=== PATIENT | male | born 1960 | race Caucasian/White ===

== ENCOUNTER 2021-02-20 15:34 | Inpatient (IN) | payer OTHER ==
[~2021-02-20] VITALS: Ht 182.9 cm; Wt 81.0 kg
[2021-02-20] MEDS ORDERED: LOSA50TA88 PO (15:43)
[2021-02-20] MEDS ORDERED: HYDR100T PO (15:43)
[2021-02-20] MEDS ORDERED: AMLO10TA PO (15:43)
[2021-02-20] MEDS ORDERED: CARV3.12 PO (15:43)
[2021-02-20] MEDS ORDERED: ACET325C5 PO (15:44)
[2021-02-20] MEDS ORDERED: FUROSEMIDE 20MG/2ML VIAL (J1940) IV ONE (16:15)
[2021-02-20 16:45] LABS: BASO % 0.4 % (0.0-1.0); EOS # 0.1 10^3/uL (0.0-0.5); EOS % 2.5 % (0.0-3.0); HEMOGLOBIN 9.5 g/dl (13.5-17.5); LYMPH # 0.4 10^3/uL (1.5-5.0); LYMPH % 8.4 % (24.0-44.0); MEAN CORPUSCULAR HEMOGLOBIN 29.9 pg (27.0-33.0); MEAN CORPUSCULAR HGB CONC 32.8 g/dl (32.0-36.5); MEAN CORPUSCULAR VOLUME 91.2 fl (80.0-96.0); MONO # 0.5 10^3/uL (0.0-0.8); MONO % 9.6 % (2.0-8.0); NEUTROPHILS # 3.8 10^3/uL (1.5-8.5); NEUTROPHILS % 78.7 % (36.0-66.0); PLATELET COUNT, AUTOMATED 162 10^3/uL (150-450); RED BLOOD COUNT 3.18 10^6/uL (4.30-6.10); WHITE BLOOD COUNT 4.9 10^3/uL (4.0-10.0)
--- NOTE | 2021-02-20 16:54 | REP ---
INDICATION: RLE swelling; recent travel; r/o DVT. COMPARISON: None. TECHNIQUE: Bilateral lower extremity duplex venous scanning is performed from the groin to the ankle level. FINDINGS: The deep veins are anechoic and fully compressible from the groin to the popliteal fossa in the left and right lower extremity. Color flow imaging is homogeneous. Spectral Doppler interrogation demonstrates intact respiratory variation in flow and normal manual augmentation of flow. There is no evidence of deep vein thrombosis in the femoropopliteal veins. There is no evidence of deep vein thrombosis in the visualized calf veins. IMPRESSION: No evidence of DVT in the femoropopliteal veins. No DVT in the visible portions of the calf veins. <Electronically signed by Delvis Smith > 02/20/21 [id number]
--- NOTE | 2021-02-20 16:56 | REP ---
INDICATION: DYSPNEA/COUGH. COMPARISON: No comparison chest x-ray. TECHNIQUE: Portable upright AP chest radiograph. FINDINGS: The lungs are well inflated and free of infiltrate. Pleural angles are sharp. Heart size is normal. Pulmonary vasculature is not increased. EKG monitoring electrodes are seen. IMPRESSION: No active disease. <Electronically signed by Delvis Smith > 02/20/21 [id number]
[2021-02-20 17:20] LABS: ALBUMIN 3.3 GM/DL (3.2-5.2); ALT/SGPT 13 U/L (12-78); BILIRUBIN,DIRECT 0.2 MG/DL (0.0-0.2); BILIRUBIN,TOTAL 0.6 MG/DL (0.2-1.0); BLOOD UREA NITROGEN 60 MG/DL (7-18); CALCIUM LEVEL 8.4 MG/DL (8.5-10.1); CARBON DIOXIDE LEVEL 20 MEQ/L (21-32); CHLORIDE LEVEL 104 MEQ/L (98-107); CK-MB VALUE MASS 1.6 NG/ML (<3.6); CPK CREATINE PHOSPHOKINASE 48 U/L (39-308); CREATININE FOR GFR 5.43 MG/DL (0.70-1.30); GLOMERULAR FILTRATION RATE 11.6 (>56); GLUCOSE, FASTING 101 MG/DL (70-100); MB/CK RELATIVE INDEX 3.33 (< OR =4); NT-PRO BNP 814 PG/ML (<125); POTASSIUM SERUM 4.5 MEQ/L (3.5-5.1); SODIUM LEVEL 133 MEQ/L (136-145); THYROXINE (T4) 9.2 UG/DL (4.5-12.0); TOTAL PROTEIN 6.5 GM/DL (6.4-8.2); TROPONIN I < 0.02 NG/ML (< 0.10)
[2021-02-20] MEDS ORDERED: NS 1,000 ML IV ONE (18:30)
[2021-02-20 19:55] LABS: APPEARANCE, URINE CLEAR (CLEAR); BACTERIA, URINE AUTO NEGATIVE (NEGATIVE); BILIRUBIN, URINE AUTO NEGATIVE (NEGATIVE); BLOOD, URINE BLOOD 3+ (NEGATIVE); COLOR, URINE YELLOW (YELLOW); GLUCOSE, URINE (UA) AUTO NEGATIVE (NEGATIVE); KETONE, URINE AUTO NEGATIVE (NEGATIVE); LEUKOCYTE ESTERASE, URINE AUTO NEGATIVE (NEGATIVE); MUCUS, URINE SMALL (NEGATIVE); NITRITE, URINE AUTO NEGATIVE (NEGATIVE); PROTEIN, URINE AUTO 2+ mg/dL (NEGATIVE); RBC, URINE AUTO TNTC /HPF (0-3); SPECIFIC GRAVITY URINE AUTO 1.005 (1.002-1.035); SQUAMOUS EPITHELIAL CELL UR AU 0 /HPF (0-6); UROBILINOGEN, URINE AUTO 0.2 mg/dL (0.0-2.0); WBC, URINE AUTO 3 /HPF (0-3)
[2021-02-20 19:57] LABS: CREATININE,RANDOM URINE 23.8 MG/DL
[2021-02-20 20:20] LABS: RSV AMPLIFICATION NEGATIVE (NEGATIVE)
[2021-02-20] MEDS ORDERED: ACET500T15 PO (20:24)
--- NOTE | 2021-02-20 20:49 | REPVR ---
PROCEDURE INFORMATION: Exam: US Retroperitoneal Limited, Kidneys Exam date and time: 02/20/2021 7:58 PM Age: 60 years old Clinical indication: Other: Dl TECHNIQUE: Imaging protocol: Real-time ultrasound of the retroperitoneum with image documentation. Examination was focused on the kidneys. Total images: 44 COMPARISON: No relevant prior studies available. FINDINGS: Right kidney: The right kidney is enlarged by multiple cysts. It is 17.4 x 7.8 x 8.9 cm. Echotexture is echogenic. There is no stone, solid right renal mass, cortical loss or hydronephrosis. There are multiple cysts. The 3 largest are:; An anechoic simple-appearing cyst at the upper pole the right kidney is 4.8 x 4.3 x 2.0 cm. A cyst containing a nonshadowing echogenic focus at the lateral mid right kidney is 4.7 x 5.0 x 4.6 cm. The echogenic focus is 1.6 x 1.2 x 0.9 cm (image 11). It is not vascular on color Doppler. And anechoic simple-appearing cyst at the medial lower right kidney is 5.6 x 4.2 x 3.9 cm. Left kidney: The left kidney is enlarged by multiple cysts. It is 13.0 x 6.6 x 7.3 cm. Echotexture is echogenic. There is no stone, solid left renal mass, cortical loss or hydronephrosis. There are multiple cysts. The 3 largest are:; A cyst containing nonshadowing echogenic material at the lateral lower left kidney is 4.5 x 3.9 x 3.7 cm. The echogenic material is 3.1 x 1.4 cm. It is not vascular on color Doppler. A simple appearing cyst in the lateral lower pole left kidney is 3.9 x 3.7 x 2.9 cm. A simple appearing cyst at the medial lower pole left kidney is 5.4 x 4.5 x 4.3 cm. Bladder: The bladder is distended. The bladder is normal without wall thickening, mass or stone. Limited images. Ureteral jets are not demonstrated. Prostate: The prostate is 4.6 x 4.2 x 4.4 cm. It contains multiple irregular central calcifications IMPRESSION: 1. Bilateral renal enlargement due to numerous cysts. No hydronephrosis or kidney stones. 2. Numerous bilateral renal cysts. Most of the cysts are simple-appearing can anechoic. There is a 5.0 cm complex cyst containing echogenic material in the right kidney. It is indeterminate. There is a 4.5 cm complex cyst containing echogenic material in the left kidney. It is indeterminate. A CT of the abdomen and pelvis using renal protocol is recommended in order to characterize these complex cysts. Electronically signed by: Eliceo Flower On 02/20/2021 20:49:25 PM
--- NOTE | 2021-02-20 20:54 | ECGEPIP ---
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
[2021-02-20] MEDS ORDERED: CARVedilol 3.125 MG TAB PO SCH (21:00)
[2021-02-20] MEDS ORDERED: MAALOX 30 ML SUSP *UDC PO PRN (21:20)
[2021-02-20] MEDS ORDERED: MOM 30ML SUSPENSION UDC PO PRN (21:20)
--- NOTE | 2021-02-20 21:46 | HPEPDOC ---
[facility] Medical History & Physical Date of Admission Feb 20, 2021 Date of Service: Feb 20, 2021 Attending Physician: MARY IBARRA MD History and Physical TIME OF SERVICE: 845pm CHIEF COMPLAINT: leg swelling HISTORY OF PRESENT ILLNESS: , a 60 yr old gentleman from [place], is in the area for a family reunion this weekend. He has had BLE swelling for a few weeks. Over the last 2 or 3 days it has been much worse despite using compression stalkings; today he came to the hospital because he is having difficulties walking. He has also been having chills and sweating especially at night, a poor appetite and has lost weight. He has a history of polycystic kidney disease, and sees a porter baggage whos name he cant currently recall, in [place]. Silvano oFreman was able to obtain hospital records from a recent hospital stay in October, at the time his Cr was about 0.9. REVIEW OF SYSTEMS: 10-point review of systems negative except as listed in HPI PAST MEDICAL/ SURGICAL HISTORY: Resistant? HTN, Polycystic kidney disease, Lap [place] SOCIAL HISTORY: He smokes, drinks alcohol socially and uses medical THC FAMILY HISTORY: Both his parents who are had CAD and had stents placed / His father had prostate cancer / His sister and cousins have polycystic kidney disease as well (his parents were not affected) ALLERGIES: Please see below. HOME MEDICATIONS: Please see below. PHYSICAL EXAMINATION: Vital Signs Date Time Temp Pulse Resp B/P (MAP) Pulse Ox O2 Delivery O2 Flow Rate FiO2 02/20/21 15:35 97.5 77 20 153/89 (110) 96 Room Air GENERAL APPEARANCE: well nourished and developed / NAD INTEGUMENT: he is not flushed or diaphoretic/ there are linear red rashes on the anterior part of both lower legs HEENT: EOMI /no scleral icterus or conjunctival injection / MM pink but slightly dry CARDIOVASCULAR: RRR/NMRG / +2 BLE edema LUNGS: CTAB on RA ABDOMEN: contour flat / soft & NT w palpation MUSCULOSKELETAL: NCAT / ROMIx 4 extremities and back NEUROLOGICAL: CN 2-12 intact / speech not dysarthric / he has bilateral hand tremors and chills when he is uncovered and holding his hands up PSYCHIATRIC: A&O x3 / able to understand and follow all commands LABORATORY DATA: 02/20/21 15:58 IMAGING: Chest xray IMPRESSION: No active disease. Vascular US IMPRESSION: No evidence of DVT in the femoropopliteal veins. No DVT in the visible portions of the calf veins. Renal US IMPRESSION: 1. Bilateral renal enlargement due to numerous cysts. No hydronephrosis or kidney stones. 2. Numerous bilateral renal cysts. Most of the cysts are simple-appearing can anechoic. There is a 5.0 cm complex cyst containing echogenic material in the right kidney. It is indeterminate. There is a 4.5 cm complex cyst containing echogenic material in the left kidney. It is indeterminate. A CT of the abdomen and pelvis using renal protocol is recommended in order to characterize these complex cysts. MICROBIOLOGY: respiratory panel neg ASSESSMENT: is a 60 yr old M w a hx of Resistant? HTN & Polycystic kidney disease who is admitted for VENKAT on CKD. PLAN: 1 VENKAT on CKD At baseline he has polycystic kidney disease Plan: admit to the medical floor / f/u Is and Os / Renal diet / f/u w prior to ordering additional tests bc the pt is out of network / hold losartan 2 BLE Possibly due to renal failure and or amlodipine Plan: elevate legs /hold CCB / lasix x1 3 NN Anemia Likely 2/2 CKD Plan: f/u CBC 4 Metabolic Acidosis / RTA ? Plan: f/u w Nephrology 5 Resistant HTN Plan: Coreg, hydralazine / hydralazine and amlodipine are on hold 6 Bilateral lower leg rash Cause TBD Plan: monitor 7 Chills he doesnt have SIRS Plan: f/u work-up blood cx & lactic acid 8 Tobacco abuse Plan: smoking cessation education DVT px w TEDS& SCDs (Sai score is 3 points only therefore pharmacological prophylaxis is not indicated) Dispo: d/c home after at least 2 midnights stay Home Medications Scheduled Amlodipine Besylate (Norvasc) 10 Mg Tablet, 10 MG PO DAILY Carvedilol (Carvedilol) 3.125 Mg Tablet, 3.125 MG PO BID Losartan Potassium (Losartan Potassium) 50 Mg Tablet, 50 MG PO DAILY hydrALAZINE HCL (Hydralazine HCl) 100 Mg Tablet, 100 MG PO TID Scheduled PRN Acetaminophen (Acetaminophen) 500 Mg Tablet, 1,000 MG PO Q6H PRN for PAIN LEVEL 1-4 Allergies Coded Allergies: amoxicillin (Verified Allergy, Unknown, ANAPHYLAXIS, 02/20/21) A-FIB/CHADSVASC A-FIB History Current/History of A-Fib/PAF?: No Current PO Anticoag Therapy: No MARY IBARRA MD Feb 20, 2021 21:46
[2021-02-20] MEDS: **hydrALAZINE** 50 MG TAB PO SCH (21:50)
[2021-02-20 23:36] LABS: INR 1.01; PROTHROMBIN TIME 13.5 SECONDS (12.5-14.3)
[2021-02-20 23:37] LABS: PARTIAL THROMBOPLASTIN TIME 51.3 SECONDS (24.2-38.5)
[2021-02-20 23:59] VITALS: BP 147/94
[2021-02-21] VITALS (11 sets, daily range): BP systolic 132–161; BP diastolic 76–83
[2021-02-21] MEDS: HEPARIN SOD (PORCINE) 5000UNITS/ML 1ML VIAL/SYRINGE SC SCH ×3 (05:39→21:46)
[2021-02-21 05:51] LABS: HEMATOCRIT 27.3 % (42.0-52.0); HEMOGLOBIN 9.1 g/dl (13.5-17.5); MEAN CORPUSCULAR HEMOGLOBIN 30.2 pg (27.0-33.0); MEAN CORPUSCULAR HGB CONC 33.3 g/dl (32.0-36.5); MEAN CORPUSCULAR VOLUME 90.7 fl (80.0-96.0); PLATELET COUNT, AUTOMATED 152 10^3/uL (150-450); RED BLOOD COUNT 3.01 10^6/uL (4.30-6.10); WHITE BLOOD COUNT 3.8 10^3/uL (4.0-10.0)
[2021-02-21 06:15] LABS: CALCIUM LEVEL 8.2 MG/DL (8.5-10.1); CREATININE FOR GFR 5.47 MG/DL (0.70-1.30); GLOMERULAR FILTRATION RATE 11.5 (>56); POTASSIUM SERUM 4.5 MEQ/L (3.5-5.1)
[2021-02-21] MEDS: SODIUM BICARBONATE 325 MG TAB PO SCH ×3 (09:00→20:07)
--- NOTE | 2021-02-21 09:01 | REP ---
INDICATION: Kidney failure, polycystic kidney disease COMPARISON: Comparison sonography February 20, 2021 demonstrates evidence of polycystic kidney disease with a 5.0 cm complex cyst containing echogenic material in the right kidney and a 4.5 cm complex is containing echogenic material in the left kidney. CT was recommended.. TECHNIQUE: Helical scanning is acquired and 3 mm axial images were reformatted. Coronal and sagittal MPR images were generated and reviewed. FINDINGS: Digital preliminary towel distributor radiograph is noncontributory. The lung bases are free of infiltrate. There is slight pleural thickening diffusely and bilaterally. There is a small quantity pericardial effusion. There are 2 small simple cysts in the liver, the largest of which measures 2.4 cm in greatest diameter. No splenic cysts are seen. Liver is not enlarged. The spleen is mildly prominent in size measuring 14.3 cm in greatest diameter. No focal splenic lesion is seen. No pancreatic abnormality is observed. The gallbladder is surgically absent. Small and large intestinal bowel loops are unremarkable in the abdomen and pelvis. There is a small quantity of ascitic fluid in the pelvic reflections. There are dystrophic calcifications in the prostate gland. Urinary bladder is unremarkable. No abdominal wall defect is seen. Both kidneys are moderately enlarged by innumerable renal cysts. Several of these are hyperdense indicating proteinaceous content. No renal mass lesion is evident. There are several cysts with focal wall calcification. There is no evidence of hydronephrosis. The left kidney is somewhat larger than the right. Overall length of the left kidney is 21.5 cm on sagittal MPR images. The overall length of the right kidney is 17.2 cm. IMPRESSION: Polycystic kidney disease. There are several slightly complex cysts in each kidney. No renal mass lesion is evident. <Electronically signed by Delvis Smith > 02/21/21 [id number]
[2021-02-21] MEDS: CARVedilol 3.125 MG TAB PO SCH ×2 (09:53→20:07)
[2021-02-21] MEDS: **hydrALAZINE** 50 MG TAB PO SCH ×3 (09:53→20:06)
--- NOTE | 2021-02-21 12:29 | IPNPDOC ---
Text Note Date of Service The patient was seen on 02/21/21. NOTE Subjective: No any acute events overnight. Patient denied fever, chills, vom iting, chest pain, diarrhea or dysuria Objective: Objective: GENERAL APPEARANCE: NAD HEENT: no scleral icterus, no JVD, EOMI CARDIOVASCULAR: S1S2 LUNGS: CTA ABDOMEN: soft & not tender w palpitation MUSCULOSKELETAL: no cyanosis, +1 lower extremity swelling bilaterally INTEGUMENT: no generalized pallor NEUROLOGICAL: cranial nerve function from 2-12 intact intact, follows commands, speech not dysarthric Assessment and plan Patient is 60 years old male with past medical history of polycystic kidney disease admitted with VENKAT Acute on chronic kidney disease Nephrology team will proceed with kidney biopsy today. Acute worsening of the kidney function of unclear etiology Await autoimmune panel result. Most likely patient will need course of steroids Bilateral leg swelling Most likely secondary to VENKAT Amlodipine on hold Normocytic anemia We will check iron panel, B12, folate Normal anion gap metabolic acidosis Nephrology team follows him Hypertension Continue home meds Amlodipine on hold Tobacco abuse smoking cessation education VSDave, I+O VS, Dave, I+O Laboratory Tests 02/20/21 15:58 02/21/21 05:32 Vital Signs Date Time Temp Pulse Resp B/P (MAP) Pulse Ox O2 Delivery O2 Flow Rate FiO2 02/21/21 09:53 75 135/76 02/21/21 06:00 97.9 16 98 02/20/21 23:00 Room Air I&O- Last 24 Hours up to 6 AM 02/21/21 06:00 Intake Total 240 ml Output Total 725 ml Balance -485 ml CAROLYN TRIPP DO Feb 21, 2021 12:29
[2021-02-21] MEDS ORDERED: LIDOCAINE 1% MDV 20ML VIAL As Ordered ONE (12:33)
--- NOTE | 2021-02-21 13:07 | CR ---
CONSULTATION DATE: 02/21/2021 CONSULTATION FOR: Tami Ann M.D. Patient was discussed with the admitting physician last evening over the phone. He is examined this morning. REASON FOR CONSULTATION: Acute renal failure. HISTORY OF PRESENT ILLNESS: Mr. Weller is a 60-year-old gentleman from [place], who is in this area for a family reunion this weekend. He reports lower extremity edema going on for the last couple of weeks. He feels that it started after he had cold symptoms for 2 weeks in end of December, and since then it has gradually worsened. Yesterday his leg edema was so worse that he could not walk, due to which he came to the emergency room. He was found to have a serum creatinine of about 5.0. The emergency room PA did contact hospital in [place] where patient had gallbladder surgery in October, and according to those records his serum creatinine was 0.9. Patient tells me that he has seen a private wealth advisor, Dr. Radha Gonzalez; however, I have just contacted their office, and they have informed me that they do have patient's name in their records, but he has never been seen in their office, and they have no records on him. In any event, patient was admitted last evening, and nephrology consultation was requested. He was taking ibuprofen prior to his gallbladder surgery in October and denies taking any nonsteroidal since then. He does have known history of polycystic kidney disease. MEDICAL HISTORY: Significant for: 1. History of polycystic kidney disease. 2. History of hypertension. 3. History of recent cholecystectomy in October this year. PERSONAL AND SOCIAL HISTORY: Patient has history of smoking and drinks alcohol socially. He uses medical marijuana. FAMILY HISTORY: Significant for coronary artery disease in his parents. He has a sister and cousin with polycystic kidneys. HOME MEDICATIONS: - amlodipine 10 mg daily - carvedilol 3.125 mg twice a day - losartan 50 mg daily - hydralazine 100 mg three times a day - Tylenol as needed. ALLERGIES: He reports allergy to AMOXICILLIN. REVIEW OF SYSTEMS: Patient denies any fever or chills. He reports cold symptoms for a couple of weeks in end of December, and since then he has developed progressive increase in lower extremity edema. Ears, nose, and throat are unremarkable. Cardiovascular system is significant for hypertension and progressive leg edema recently. He denies any chest pain. Respiratory system negative for cough or hemoptysis at present. Gastrointestinal system is negative for vomiting or diarrhea. Genitourinary () system is negative for dysuria or hematuria. He feels that his urine is more foamy lately. Musculoskeletal system significant for increasing leg edema and difficulty walking. He does have a history of nonsteroidal anti-inflammatory drug (NSAID) use a few months ago. Endocrine system negative for diabetes or thyroid problems. Hematological system is negative for any easy bruising or excessive bleeding. He does have anemia on his labs. Skin is negative for rash or ulcers. PHYSICAL EXAMINATION: Temperature 97.9 degrees Fahrenheit, heart rate 79 per minute, respiratory rate 16 per minute, blood pressure 132/76 mmHg, and oxygen saturation 98% on room air. He has mild facial puffiness. Head is atraumatic. Neck is supple, and jugular venous distention (JVD) not abnormally elevated. There is no oral thrush or ulcers. Ears, nose, and throat are unremarkable. Heart exam reveals a regular S1 and S2. Lungs clear to auscultation. Abdomen soft, and large polycystic kidneys are easily palpable. Bowel sounds are normal. Extremities have no cyanosis or clubbing. Lower extremity edema is 2+ at least bilaterally. Skin is without any rash or ulcers. Neurologically he is awake, alert, and oriented times three. LABORATORY DATA: WBC count is 3.8 today, hemoglobin 9.1, and hematocrit 27.3. Platelets 152. Urinalysis showed 2+ protein and 3+ blood with too numerous to count RBC. His chemistry last evening showed sodium 133, potassium 4.5. CO2 was 20, BUN 60, and creatinine 5.43. Calcium level 8.4 and lactic acid 1.3. Total protein 6.5 and albumin 3.3. A TSH level was 1.85. This morning, BUN 53 and creatinine 5.47. CO2 is down to 17. PROBLEMS: 1. Acute renal failure superimposed on chronic kidney disease. Patient has known history of polycystic kidney disease at baseline. His renal ultrasound was done last evening in the emergency room, which did not show any evidence of hydronephrosis. He does have polycystic kidneys. In view of acute change in kidney function since October this year and no evidence of obstruction or volume depletion, I am concerned about possibility of acute glomerulonephritis, as he does have proteinuria and hematuria. I have tried to get information from his primary private wealth advisor in [place], [place]; however, apparently they have no record. At this point, most of his serologies are pending. His complement has come back slight low with C3 level of 78 and C4 is 14. His SARS-CoV-2 was negative, and influenza was also negative. His ASO is normal at 78.7. At this point, we think that patient would benefit from a diagnostic kidney biopsy, and I have discussed with him. We will go ahead and schedule the kidney biopsy today in view of weekend approaching and try to get to the bottom of his problem as soon as possible. 2. Proteinuria and hematuria. It is possible that he has proteinuria and hematuria due to ruptured cyst in his polycystic kidneys; however, it is also possible that this is due to acute glomerulonephritis, and in view of acute decline in kidney function and worsening peripheral edema, I think acute glomerulonephritis is much more likely. We will go ahead and proceed with a diagnostic kidney biopsy and start with empiric steroid therapy tomorrow. I will make another effort to try to get his baseline information from [place] if we could reach anybody who has records. Patient gave me the name of private wealth advisor, and apparently that private wealth advisor's office did not have any records on him. 3. Hypertension. The patient seems well controlled. His losartan has been stopped, and amlodipine has also been stopped in view of acute kidney injury and leg edema. I am going to increase his carvedilol dose to 6.25 mg twice a day and will make further adjustments as needed. 4. Metabolic acidosis. His acidosis has worsened, and I am going to start sodium bicarbonate 650 mg three times a day. 5. Anemia. Most likely this is result of acute renal failure and possible acute glomerulonephritis. There is no emergent need for a transfusion and will need to be monitored closely. I will add iron studies to his labs. Thank you for involving me in the care of Mr. Weller. I will follow him along with you.
[2021-02-21 13:38] LABS: FOLATE 13.3 NG/ML (>5.4); PERCENT SATURATION 26.8 % (19.7-50.0)
[2021-02-21] MEDS: ACETAMINOPHEN TAB 650MG DOSE (2X325MG) PO PRN (19:04)
[2021-02-22 05:59] LABS: BASO % 0.3 % (0.0-1.0); EOS # 0.1 10^3/uL (0.0-0.5); EOS % 3.5 % (0.0-3.0); HEMATOCRIT 26.9 % (42.0-52.0); HEMOGLOBIN 8.7 g/dl (13.5-17.5); LYMPH # 0.4 10^3/uL (1.5-5.0); LYMPH % 12.5 % (24.0-44.0); MEAN CORPUSCULAR HEMOGLOBIN 29.8 pg (27.0-33.0); MEAN CORPUSCULAR HGB CONC 32.3 g/dl (32.0-36.5); MEAN CORPUSCULAR VOLUME 92.1 fl (80.0-96.0); MONO # 0.3 10^3/uL (0.0-0.8); MONO % 9.3 % (2.0-8.0); NEUTROPHILS # 2.3 10^3/uL (1.5-8.5); NEUTROPHILS % 74.1 % (36.0-66.0); PLATELET COUNT, AUTOMATED 158 10^3/uL (150-450); RED BLOOD COUNT 2.92 10^6/uL (4.30-6.10); WHITE BLOOD COUNT 3.1 10^3/uL (4.0-10.0)
[2021-02-22 06:00] VITALS: BP 146/79
[2021-02-22] MEDS: HEPARIN SOD (PORCINE) 5000UNITS/ML 1ML VIAL/SYRINGE SC SCH ×4 (06:21→21:28)
[2021-02-22 06:25] LABS: ALT/SGPT 11 U/L (12-78); BILIRUBIN,TOTAL 0.4 MG/DL (0.2-1.0); BLOOD UREA NITROGEN 54 MG/DL (7-18); CALCIUM LEVEL 8.2 MG/DL (8.5-10.1); CARBON DIOXIDE LEVEL 22 MEQ/L (21-32); CHLORIDE LEVEL 106 MEQ/L (98-107); CREATININE FOR GFR 5.59 MG/DL (0.70-1.30); GLOMERULAR FILTRATION RATE 11.2 (>56); GLUCOSE, FASTING 90 MG/DL (70-100); MAGNESIUM LEVEL 1.6 MG/DL (1.8-2.4); POTASSIUM SERUM 4.2 MEQ/L (3.5-5.1); SODIUM LEVEL 137 MEQ/L (136-145); TOTAL PROTEIN 6.2 GM/DL (6.4-8.2)
[2021-02-22 06:35] LABS: TOTAL PROTEIN 24 HOUR URINE 3436.5 MG/24HR (50-150)
[2021-02-22] MEDS ORDERED: methylPREDNISolone 1,000 MG, VIAL MATE ADAPTER 1 EACH in NS 250 ML IV ONE (08:05)
[2021-02-22 08:32] LABS: CHOLESTEROL LEVEL 128 MG/DL (<200); CHOLESTEROL RISK RATIO 3.657 (<5); HDL CHOLESTEROL 35 MG/DL (>40); LDL CHOLESTEROL 66 MG/DL (<100); NON-HDL-C 93 MG/DL; TRIGLYCERIDES LEVEL 135 MG/DL (<150)
[2021-02-22] MEDS: **hydrALAZINE** 50 MG TAB PO SCH ×3 (09:21→21:28)
[2021-02-22] MEDS: SODIUM BICARBONATE 325 MG TAB PO SCH ×3 (09:21→21:27)
[2021-02-22] MEDS: CARVedilol 3.125 MG TAB PO SCH ×2 (09:21→21:28)
[2021-02-22] MEDS ORDERED: VIAL MATE ADAPTER XX ONE (10:25)
[2021-02-22] MEDS: MAGNESIUM GLUCONATE 500 MG TAB PO SCH (10:31)
--- NOTE | 2021-02-22 11:44 | IPNPDOC ---
Text Note Date of Service The patient was seen on 02/22/21. NOTE Subjective: No any acute events overnight. Objective: GENERAL APPEARANCE: NAD HEENT: no scleral icterus, no JVD, EOMI CARDIOVASCULAR: S1S2 LUNGS: CTA ABDOMEN: soft & not tender w palpitation MUSCULOSKELETAL: no cyanosis, +1 lower extremity swelling bilaterally INTEGUMENT: no generalized pallor NEUROLOGICAL: cranial nerve function from 2-12 intact intact, follows commands, speech not dysarthric Assessment and plan Patient is 60 years old male with past medical history of polycystic kidney disease admitted with VENKAT Acute on chronic kidney disease Await kidney biopsy result. Acute worsening of the kidney function of unclear etiology Await autoimmune panel result. Nephrology team started Solu-Medrol 1 g IV Bilateral leg swelling Most likely secondary to VENKAT Amlodipine on hold Normocytic anemia B12, folate within normal limit Iron is low, we will start iron supplementation We will check stool for occult blood Most likely patient will need Aranesp Normal anion gap metabolic acidosis Nephrology team follows him, sodium bicarb started Hypertension Continue home meds Amlodipine on hold Tobacco abuse smoking cessation education VS,Dave, I+O VS, Dave, I+O Laboratory Tests 02/22/21 05:28 Vital Signs Date Time Temp Pulse Resp B/P (MAP) Pulse Ox O2 Delivery O2 Flow Rate FiO2 02/22/21 09:21 75 145/79 02/22/21 06:00 97.6 14 97 Room Air I&O- Last 24 Hours up to 6 AM 02/22/21 06:00 Intake Total 910 ml Output Total 1690 ml Balance -780 ml CAROLYN TRIPP DO Feb 22, 2021 11:44
[2021-02-22] MEDS: IRON POLYSAC (NIFEREX) 150 MG CAP PO SCH ×2 (12:11→21:28)
--- NOTE | 2021-02-22 12:12 | CR.PDOC ---
General Date of Consultation: Feb 22, 2021 Referring Provider: Garret Wilson MD Consultation REASON FOR CONSULTATION/CHIEF COMPLAINT: Permacath placement HISTORY OF PRESENT ILLNESS: Patient developed bilateral lower extremity edema. has h/o of polycystic kidney disease and hypertension. also has proteinuria and hematuria. per primary, patient needs permacath for anticipated dialysis treatment. ALLERGIES: Please see below. HOME MEDICATIONS: Please see below. PAST MEDICAL HISTORY: 1. Acute Kidney Failure 2. Polycystic Kidney Disease 3. Hypertension PAST SURGICAL HISTORY: 1. Cholecystectomy 10/27 REVIEW OF SYSTEMS: Patient denies any fever or chills. He reports cold symptoms for a couple of weeks in end of December, and since then he has developed progressive increase in lower extremity edema. Ears, nose, and throat are unremarkable. Cardiovascular system is significant for hypertension and progressive leg edema recently. He denies any chest pain. Respiratory system negative for cough or hemoptysis at present. Gastrointestinal system is negative for vomiting or diarrhea. Genitourinary () system is negative for dysuria or hematuria. He feels that his urine is more foamy lately. Musculoskeletal system significant for increasing leg edema and difficulty walking. He does have a history of nonsteroidal anti-inflammatory drug (NSAID) use a few months ago. Endocrine system negative for diabetes or thyroid problems. Hematological system is negative for any easy bruising or excessive bleeding. He does have anemia on his labs. Skin is negative for rash or ulcers. PHYSICAL EXAMINATION: VITAL SIGNS: Please see below. GENERAL APPEARANCE: No acute distress HEENT: WNL RESPIRATORY: CTA B/L CARDIOVASCULAR: regular rate and rhythm ABDOMEN: soft, nd, nt EXTREMITIES: FROM NEUROLOGICAL: no neuro deficits PSYCHIATRIC: not in distress LABORATORY DATA: Please see below. ASSESSMENT/PLAN: ARF - patient for permacath today. Vital Signs/I&O Vital Signs Date Time Temp Pulse Resp B/P (MAP) Pulse Ox O2 Delivery O2 Flow Rate FiO2 02/22/21 09:21 75 145/79 02/22/21 06:00 97.6 14 97 Room Air I&O- Last 24 Hours up to 6 AM 02/22/21 06:00 Intake Total 910 ml Output Total 1690 ml Balance -780 ml Laboratory Data Labs 24H Laboratory Tests 2 02/22/21 05:28: Immature Granulocyte % (Auto) 0.3, Neutrophils (%) (Auto) 74.1H, Lymphocytes (%) (Auto) 12.5L, Monocytes (%) (Auto) 9.3H, Eosinophils (%) (Auto) 3.5H, Basophils (%) (Auto) 0.3, Neutrophils # (Auto) 2.3, Lymphocytes # (Auto) 0.4L, Monocytes # (Auto) 0.3, Eosinophils # (Auto) 0.1, Basophils # (Auto) 0.0, Nucleated Red Blood Cells % (auto) 0.0, Anion Gap 9, Glomerular Filtration Rate 11.2L, Calcium Level 8.2L, Magnesium Level 1.6L, Total Bilirubin 0.4, Aspartate Amino Transf (AST/SGOT) 10, Alanine Aminotransferase (ALT/SGPT) 11L, Alkaline Phosphatase 66, Total Protein 6.2L, Albumin 3.0L, Albumin/Globulin Ratio 0.9, Triglycerides Level 135, Total Cholesterol 128, LDL Cholesterol 66, Non-HDL Cholesterol (LDL + VLDL) 93, Total HDL Cholesterol 35L, Cholesterol/HDL Ratio 3.657 02/22/21 05:45: Urine Total Volume (Protein) 1450, Urine Total Protein 24 Hour 3436.5H, Urine Total Protein 237.0H CBC/BMP Laboratory Tests 02/22/21 05:28 Microbiology Microbiology 02/20/21 Blood Culture - Preliminary, Resulted No growth after 24 hours . All specim... Allergies Coded Allergies: amoxicillin (Verified Allergy, Unknown, ANAPHYLAXIS, 02/20/21) Home Medications Scheduled Amlodipine Besylate (Norvasc) 10 Mg Tablet, 10 MG PO DAILY, (Reported) Carvedilol (Carvedilol) 3.125 Mg Tablet, 3.125 MG PO BID, (Reported) Losartan Potassium (Losartan Potassium) 50 Mg Tablet, 50 MG PO DAILY, (Reported) hydrALAZINE HCL (Hydralazine HCl) 100 Mg Tablet, 100 MG PO TID, (Reported) Scheduled PRN Acetaminophen (Acetaminophen) 500 Mg Tablet, 1,000 MG PO Q6H PRN for PAIN LEVEL 1-4, (Reported) RICKY CALLAHAN MD Feb 22, 2021 12:12
[2021-02-22 12:19] LABS: HEPATITIS B SURFACE ANTIBODY NEGATIVE (POSITIVE)
--- NOTE | 2021-02-22 12:20 | IPN ---
NEPHROLOGY PROGRESS NOTE DATE: 02/22/2021 SUBJECTIVE: Mr. Weller is seen this morning at his bedside. He underwent a CT guided right kidney biopsy yesterday afternoon and results are pending. In the meantime he denies any nausea, vomiting, dyspnea or chest pain. He did not have any complications following biopsy and denies any gross hematuria or flank pain. He was admitted with acute renal failure and significant lower extremity edema. His medications have been adjusted and kidney biopsy performed yesterday. I could not get any baseline information as the name of the event set up specialist and phone number that he provided did not have any records on the patient. OBJECTIVE: PHYSICAL EXAMINATION: GENERAL APPEARANCE: The patient is awake and alert and without any distress. VITAL SIGNS: Temperature 97.6, degrees Fahrenheit, heart rate 75 per minute, respiratory rate 14 per minute, blood pressure 145/79 mm of mercury and oxygen saturation 97% on room air. HEENT: His head is atraumatic. NECK: Supple and without any JVD or thyroid enlargement. HEART: Regular and without a pericardial friction rub. LUNGS: Clear to auscultation. BACK: There is an intact dressing at the biopsy site without any hematoma or bleeding. ABDOMEN: Soft and nontender and bowel sounds are normal. Both bilateral polycystic kidneys are easily palpable. EXTREMITIES: Without any cyanosis or clubbing. He does have at least 1+ edema on both legs. LABORATORY STUDIES: Today's labs show a WBC count of 3.1, hemoglobin 8.7 and hematocrit 26.9, platelet count 158. Sodium 137, potassium 4.2, CO2 22, BUN 54 and creatinine 5.59, glucose 90 and calcium 8.2. His iron level was 53 yesterday and saturation 26.8%. Total protein is 6.2 and albumin 3.0. His 24-hour urine protein has come back at 3,436 mg. PROBLEMS: 1. Acute kidney injury superimposed on chronic kidney disease - The patient has a known history of polycystic kidney disease, however etiology for his acute renal failure is unclear at this time. He had a kidney biopsy done yesterday and the results are pending. I suspect that he has acute glomerulonephritis in view of proteinuria and hematuria. We are going to give him the first dose of steroids today with Solu-Medrol 1,000 mg and wait for the biopsy results. I have explained to the patient about the need for steroid therapy with potential side effects explained. He is agreeable to it. 2. Proteinuria - The patient has nephrotic range of proteinuria and possibly acute glomerulonephritis in view of worsening kidney function. Kidney biopsy was performed yesterday and the results are pending. We are starting with the first dose of steroids pending biopsy results. 3. Hypertension at present his blood pressure is reasonably well controlled. He is off Amlodipine and Losartan that he was taking at home. We can adjust his medications as needed. I have already increased the dose of Carvedilol. 4. Anemia, most likely related to acute renal failure his iron studies are reasonable and we will monitor closely. There is no urgent need for transfusion. I will hold off on Aranesp at this point as we are starting steroid therapy and there would be a risk for worsening hypertension. 5. Metabolic acidosis his acidosis has improved with sodium bicarbonate supplement and we will continue with the same.
[2021-02-22 12:29] LABS: HEPATITIS B SURFACE ANTIGEN NEGATIVE (NEGATIVE)
[2021-02-22] MEDS ORDERED: LIDOCAINE 1% MDV 20ML VIAL As Ordered ONE (12:35)
[2021-02-22] MEDS ORDERED: MIDAZOLAM INJ 2MG/2ML VIAL (J2250 PER 1MG) As Ordered ONE (12:35)
[2021-02-22] MEDS ORDERED: fentaNYL 100 MCG/2 ML INJECTION (J3010) As Ordered ONE (12:35)
[2021-02-22 12:58] LABS: HEPATITIS B CORE ANTIBODY IGM NEGATIVE (NEGATIVE)
[2021-02-22 14:00] VITALS: BP 172/66
--- NOTE | 2021-02-22 14:13 | ROOPDOC ---
[facility] Report Of Operation Report of Operation DATE OF PROCEDURE: [02/22/2021] PREPROCEDURE DIAGNOSES: Acute Renal Failure POSTPROCEDURE DIAGNOSES: Acute Renal Failure PROCEDURE PERFORMED: 1. Permacath Placement 2. Ultrasound guided percutaneous entry SURGEON: Ricky Donovan MD ANESTHESIA: Local and sedation ESTIMATED BLOOD LOSS: Approximately 3 mL. COMPLICATIONS: None REMARKS: None FINDINGS: Tip of catheter in good position SPECIMENS REMOVED: N/A DESCRIPTION OF PROCEDURE: Patient was brought to the angio suite and placed on the operating table in supine position. After adequate anesthesia was administered, the patient's right neck and chest were prepped and draped in standard surgical fashion. Local anesthetic was administered along the anticipated route of the tunneled catheter. Using ultrasound guidance, percutaneous entry into the right IJ was performed using a micropuncture needle. Over guidewire exchange, a microsheath was placed and a Nitrex wire than p assed into the SVC. A separate incision was made on the right anterior chest just below the clavicle and the dialysis catheter was tunneled from the anterior chest incision to the neck puncture site with the Maury cuff of the catheter located just below the clavicle. Under fluoroscopic guidance, a tear-away sheath was then placed over the wire and into the SVC. The catheter was then placed through the sheath with the tip located at the cavoatrial junction. The sheath was removed and both ports were tested for flow and then flushed with saline solution. IV Heparin was then instilled into both ports. A 2-0 Prolene suture was used to anchor the catheter to the chest and a 4-0 Monocryl suture to close the neck puncture site. Sterile dressings were then placed. RICKY DONOVAN MD Feb 22, 2021 14:13
[2021-02-22] MEDS: ACETAMINOPHEN TAB 650MG DOSE (2X325MG) PO PRN ×2 (16:08→21:27)
[2021-02-22] MEDS: traMADol 50 MG TAB PO PRN (16:56)
[2021-02-22 22:00] VITALS: BP 151/80
[2021-02-23 02:00] VITALS: BP 124/68
[2021-02-23 05:08] LABS: FREE KAPPA LIGHT CHAINS URINE 183.33 mg/L (0.63-113.79); FREE LAMBDA LIGHT CHAINS URINE 56.33 mg/L (0.47-11.77); KAPPA/LAMBDA RATIO URINE 3.25 (1.03-31.76)
[2021-02-23] MEDS: HEPARIN SOD (PORCINE) 5000UNITS/ML 1ML VIAL/SYRINGE SC SCH ×3 (05:22→21:10)
[2021-02-23 06:00] VITALS: BP 130/73
[2021-02-23 06:09] LABS: HEMATOCRIT 26.2 % (42.0-52.0); HEMOGLOBIN 8.8 g/dl (13.5-17.5); LYMPH # 0.3 10^3/uL (1.5-5.0); MEAN CORPUSCULAR HGB CONC 33.6 g/dl (32.0-36.5); MEAN CORPUSCULAR VOLUME 89.4 fl (80.0-96.0); MONO # 0.1 10^3/uL (0.0-0.8); MONO % 2.1 % (2.0-8.0); NEUTROPHILS # 2.9 10^3/uL (1.5-8.5); NEUTROPHILS % 88.3 % (36.0-66.0); PLATELET COUNT, AUTOMATED 132 10^3/uL (150-450); RED BLOOD COUNT 2.93 10^6/uL (4.30-6.10); WHITE BLOOD COUNT 3.3 10^3/uL (4.0-10.0)
[2021-02-23 06:34] LABS: ALBUMIN 3.2 GM/DL (3.2-5.2); BILIRUBIN,TOTAL 0.4 MG/DL (0.2-1.0); CALCIUM LEVEL 8.3 MG/DL (8.5-10.1); CREATININE FOR GFR 5.59 MG/DL (0.70-1.30); GLOMERULAR FILTRATION RATE 11.2 (>56); MAGNESIUM LEVEL 1.6 MG/DL (1.8-2.4); POTASSIUM SERUM 4.4 MEQ/L (3.5-5.1); TOTAL PROTEIN 6.5 GM/DL (6.4-8.2)
[2021-02-23] MEDS ORDERED: methylPREDNISolone 1,000 MG, VIAL MATE ADAPTER 1 EACH in NS 250 ML IV ONE (09:00)
[2021-02-23] MEDS: IRON POLYSAC (NIFEREX) 150 MG CAP PO SCH ×2 (09:05→21:08)
[2021-02-23] MEDS: SODIUM BICARBONATE 325 MG TAB PO SCH (09:06)
[2021-02-23] MEDS: MAGNESIUM GLUCONATE 500 MG TAB PO SCH (09:06)
[2021-02-23] MEDS: CARVedilol 3.125 MG TAB PO SCH ×2 (09:08→21:09)
[2021-02-23] MEDS: **hydrALAZINE** 50 MG TAB PO SCH ×3 (09:08→21:09)
[2021-02-23] MEDS: traMADol 50 MG TAB PO PRN ×3 (09:09→22:20)
[2021-02-23 10:00] VITALS: BP 163/78
[2021-02-23] MEDS ORDERED: DARBEPOETIN 100 MCG/0.5 ML *DIALYSIS* SYRINGE (J0882) IV SCH (10:40)
[2021-02-23 11:10] LABS: CHOLESTEROL RISK RATIO 3.613 (<5)
--- NOTE | 2021-02-23 11:30 | IPNPDOC ---
Text Note Date of Service The patient was seen on 02/23/21. NOTE Subjective: No any acute events overnight. No fever or chills Objective: GENERAL APPEARANCE: NAD HEENT: no scleral icterus, no JVD, EOMI CARDIOVASCULAR: S1S2 LUNGS: CTA ABDOMEN: soft & not tender w palpitation MUSCULOSKELETAL: no cyanosis, +1 lower extremity swelling bilaterally INTEGUMENT: no generalized pallor NEUROLOGICAL: cranial nerve function from 2-12 intact intact, follows commands, speech not dysarthric Assessment and plan Patient is 60 years old male with past medical history of polycystic kidney disease admitted with VENKAT Acute on chronic kidney disease/acute glomerulonephritis Await kidney biopsy result. Acute worsening of the kidney function of unclear etiology. Nephrology team will start dialysis today Await autoimmune panel result. Nephrology team started Solu-Medrol 1 g IV Bilateral leg swelling Most likely secondary to VENKAT Amlodipine on hold Normocytic anemia B12, folate within normal limit Iron is low, we will start iron supplementation We will check stool for occult blood Most likely patient will need Aranesp Normal anion gap metabolic acidosis Nephrology team follows him, sodium bicarb started Hypertension Continue home meds Amlodipine on hold Tobacco abuse smoking cessation education VS,Fishbone, I+O VS, Fishbone, I+O Laboratory Tests 02/23/21 05:46 Vital Signs Date Time Temp Pulse Resp B/P (MAP) Pulse Ox O2 Delivery O2 Flow Rate FiO2 02/23/21 10:00 97.5 66 17 163/78 (106) 100 Room Air 02/22/21 13:40 2.0 I&O- Last 24 Hours up to 6 AM 02/23/21 06:00 Intake Total 2308 ml Output Total 1100 ml Balance 1208 ml CAROLYN TRIPP DO Feb 23, 2021 11:30
[2021-02-23 11:38] LABS: HEMOGLOBIN A1c 5.1 %
[2021-02-23] MEDS: PANTOPRAZOLE 40MG VIAL (C9113 PER 1) IV SCH ×2 (12:11→21:08)
--- NOTE | 2021-02-23 14:17 | IPN ---
NEPHROLOGY PROGRESS NOTE DATE: 02/23/2021 SUBJECTIVE: Patient was seen and examined at the bedside today morning. He is laying in the bed. He got his first dose of Solu-Medrol yesterday. Second dose was given today. There is no significant improvement in the renal function. He has a tunneled dialysis catheter. I talked to him about starting hemodialysis and he agreed to start hemodialysis. OBJECTIVE: VITAL SIGNS: Temperature 97.5 degrees Fahrenheit, blood pressure 163/78, pulse 66, respiratory rate 17, saturating 100% on room air. INTAKE AND OUTPUT: Urine output recorded as 1.2 liters yesterday, 650 mL so far today since overnight. Weight in the bed scale was 79.8 kg yesterday. PHYSICAL EXAMINATION: GENERAL: Patient is awake, alert, oriented times three, laying in bed, no apparent distress. HEAD AND NECK EXAM: Extraocular muscles intact. Pupils equally round and reactive to light. Mucous membranes are moist. Neck is supple. There is a right internal jugular (IJ) tunneled hemodialysis catheter. CARDIOVASCULAR: S1, S2. Regular rate. No edema of the bilateral lower extremities. RESPIRATORY: Chest is clear to auscultation bilaterally. Bilateral equal air entry. No rales or rhonchi. ABDOMEN: Soft. Positive bowel sounds. Nontender. No organomegaly MUSCULOSKELETAL: No clubbing or cyanosis. Pulses are 2+. CENTRAL NERVOUS SYSTEM (WOUND CARE PHYSICIAN): No focal deficit. Power is 5/5 in all extremities. LABORATORY STUDIES: CBC showed WBC 3.3, hemoglobin 8.8, platelets 232. BMP showed sodium 132, potassium 4.4, chloride 102, bicarbonate 21, BUN 60, creatinine 5.5, calcium 8.3, magnesium 1.6. CURRENT INPATIENT MEDICATIONS: Patient's medications were all reviewed by myself. There is no significant change in the medications today except that he already got his second dose of Solu-Medrol. I have started the patient on Venofer with dialysis and Aranesp with dialysis, and I also started him on Protonix 40 mg intravenous (IV) twice a day. Patient is also on sodium bicarbonate and I am going to stop his sodium bicarbonate. ASSESSMENT AND PLAN: 1. Acute renal failure superimposed on chronic kidney disease. Baseline renal function is not known. Patient reports history of polycystic kidney disease. He is being given pulse steroids at this time because of proteinuria. Biopsy is done and results are still pending. Patient agreed to start dialysis. He will be started on hemodialysis. First session will be today for two hours. 2. Anemia in chronic kidney disease. Patient is going to be started on Venofer and Aranesp with dialysis. No need for blood transfusion. 3. Metabolic acidosis. It will be controlled with dialysis now. Oral bicarbonate is being stopped. 4. Gastrointestinal (GI) prophylaxis. Patient is getting pulse steroids. I have started the patient on IV Protonix. 5. Hypertension. Blood pressure is controlled with the current dose of Coreg and hydralazine. Volume status optimization will also improve his blood pressures.
[2021-02-23 22:00] VITALS: BP 144/79
[2021-02-24] MEDS: HEPARIN SOD (PORCINE) 5000UNITS/ML 1ML VIAL/SYRINGE SC SCH ×3 (05:19→21:09)
[2021-02-24] MEDS: traMADol 50 MG TAB PO PRN ×3 (05:21→19:30)
[2021-02-24 06:00] VITALS: BP 140/80
[2021-02-24 06:28] LABS: HEMATOCRIT 25.3 % (42.0-52.0); HEMOGLOBIN 8.3 g/dl (13.5-17.5); LYMPH # 0.3 10^3/uL (1.5-5.0); LYMPH % 3.8 % (24.0-44.0); MEAN CORPUSCULAR HEMOGLOBIN 29.9 pg (27.0-33.0); MEAN CORPUSCULAR HGB CONC 32.8 g/dl (32.0-36.5); MONO # 0.3 10^3/uL (0.0-0.8); MONO % 3.4 % (2.0-8.0); NEUTROPHILS # 7.1 10^3/uL (1.5-8.5); NEUTROPHILS % 92.4 % (36.0-66.0); PLATELET COUNT, AUTOMATED 171 10^3/uL (150-450); RED BLOOD COUNT 2.78 10^6/uL (4.30-6.10); WHITE BLOOD COUNT 7.7 10^3/uL (4.0-10.0)
[2021-02-24 06:49] LABS: ALBUMIN 3.2 GM/DL (3.2-5.2); BILIRUBIN,TOTAL 0.3 MG/DL (0.2-1.0); CALCIUM LEVEL 8.6 MG/DL (8.5-10.1); CREATININE FOR GFR 4.52 MG/DL (0.70-1.30); GLOMERULAR FILTRATION RATE 14.3 (>56); MAGNESIUM LEVEL 1.8 MG/DL (1.8-2.4); POTASSIUM SERUM 4.5 MEQ/L (3.5-5.1); TOTAL PROTEIN 6.7 GM/DL (6.4-8.2)
[2021-02-24] MEDS: IRON POLYSAC (NIFEREX) 150 MG CAP PO SCH ×2 (08:30→21:11)
[2021-02-24] MEDS: MAGNESIUM GLUCONATE 500 MG TAB PO SCH (08:30)
[2021-02-24] MEDS: **hydrALAZINE** 50 MG TAB PO SCH ×3 (08:34→21:10)
[2021-02-24] MEDS: CARVedilol 3.125 MG TAB PO SCH ×2 (08:35→21:11)
[2021-02-24] MEDS: PANTOPRAZOLE 40MG VIAL (C9113 PER 1) IV SCH ×2 (08:36→21:10)
[2021-02-24] MEDS ORDERED: methylPREDNISolone 1,000 MG, VIAL MATE ADAPTER 1 EACH in NS 250 ML IV ONE (09:00)
--- NOTE | 2021-02-24 11:11 | IPNPDOC ---
Text Note Date of Service The patient was seen on 02/24/21. NOTE Subjective: No any acute events overnight. No fever or chills. Patient denies chest pain, palpitations or diarrhea. Patient tolerates dialysis well Objective: GENERAL APPEARANCE: NAD HEENT: no scleral icterus, no JVD, EOMI CARDIOVASCULAR: S1S2 LUNGS: CTA ABDOMEN: soft & not tender w palpitation MUSCULOSKELETAL: no cyanosis, +1 lower extremity swelling bilaterally INTEGUMENT: no generalized pallor NEUROLOGICAL: cranial nerve function from 2-12 intact intact, follows commands, speech not dysarthric Assessment and plan Patient is 60 years old male with past medical history of polycystic kidney disease admitted with VENKAT Acute on chronic kidney disease/acute glomerulonephritis Await kidney biopsy result. Acute worsening of the kidney function of unclear etiology. Nephrology team will start dialysis today Await autoimmune panel result. Nephrology team started Solu-Medrol 1 g IV Bilateral leg swelling Most likely secondary to VENKAT Amlodipine on hold Normocytic anemia B12, folate within normal limit Iron is low, continue iron supplementation We will check stool for occult blood Continue Aranesp Normal anion gap metabolic acidosis Nephrology team follows him Managed by dialysis Hypertension We will restart [facility] Tobacco abuse smoking cessation education VS,Fishbone, I+O VS, Fishbone, I+O Laboratory Tests 02/24/21 05:45 Vital Signs Date Time Temp Pulse Resp B/P (MAP) Pulse Ox O2 Delivery O2 Flow Rate FiO2 02/24/21 08:35 72 153/85 02/24/21 06:00 97.6 20 97 Room Air 02/22/21 13:40 2.0 I&O- Last 24 Hours up to 6 AM 02/24/21 06:00 Intake Total 1060 ml Output Total 700 ml Balance 360 ml CAROLYN TRIPP DO Feb 24, 2021 11:11
[2021-02-24 14:00] VITALS: BP 150/66
--- NOTE | 2021-02-24 16:21 | IPN ---
NEPHROLOGY PROGRESS NOTE DATE: 02/24/2021 SUBJECTIVE: The patient was seen and examined at the bedside today morning. He is afebrile, hemodynamically stable. He was dialyzed yesterday. He tolerated the hemodialysis procedure well. Dr. Wilson got a call from the Pathology Department at [facility] in [place] with the preliminary results and the patient has acute glomerulonephritis with immune complex deposition, predominately IgA. The final report is pending. The patient is already on pulse dose of steroids. He does have polycystic kidney disease but most likely it is type 2 polycystic kidney disease. OBJECTIVE: VITAL SIGNS: Temperature is 97.4 discharge, blood pressure 150/66, pulse is 82, respiratory rate of 18, saturating 97% on room air. INTAKE AND OUTPUT: Urine output is not recorded. Ultrafiltration with hemodialysis was 500 mL yesterday. Weight in the bed scale is not available. PHYSICAL EXAMINATION: GENERAL APPEARANCE: The patient is awake, alert, oriented x3, laying in bed in no apparent distress. HEAD AND NECK: Extraocular muscles intact. Pupils are equally round and reactive to light. Mucous membranes are moist. Neck is supple. He has a right IJ tunneled hemodialysis catheter. CARDIOVASCULAR: S1, S2, regular rate. EXTREMITIES: 1+ edema of the bilateral lower extremities. RESPIRATORY: Chest is clear to auscultation bilaterally. Bilaterally currently no rales or rhonchi. ABDOMEN: Soft, positive bowel sounds, nontender, no organomegaly. MUSCULOSKELETAL: No clubbing, no cyanosis. Pulses are 2+. LOADER: No focal deficits. Power is 5/5 in all extremities. LAB REVIEW: CBC showed a WBC count of 7.7, hemoglobin 8.3, platelet count 171. BMP showed sodium of 134, potassium 4.5, chloride 103, bicarbonate 23, BUN 47, creatinine is 4.5. Calcium 8.6, magnesium is 1.8. CURRENT INPATIENT MEDICATIONS: The patient's medications were all reviewed by myself. He got a third dose of IV pulse Solu-Medrol one gram today morning. I started him on Prednisone 60 mg p.o. daily, starting from tomorrow morning. ASSESSMENT AND PLAN: 1. Acute renal failure the patient's prelim biopsy shows immune complex deposition, predominately IgA. Final report is pending. I would continue the patient on steroids at this time. As mentioned above, he has been started on Prednisone. Further immunosuppression will be decided once we have the final biopsy result available. Continue the hemodialysis at this time. 2. Anemia in renal failure - continue Aranesp and Venofer with dialysis. If hemoglobin drops below 8, he will be given PRBC transfusion. 3. Hypertension - blood pressure is controlled with Hydralazine and Coreg. Further fluid removal will be done tomorrow morning. 4. Disposition - This patient is originally from [place] and he wants to go back to his mandarin speaking nanny in [place]. I have requested a PFS consult for acquiring a dialysis chair in [place], [place].
[2021-02-24 22:00] VITALS: BP 130/73
[2021-02-25] MEDS: traMADol 50 MG TAB PO PRN ×3 (01:39→17:48)
[2021-02-25 06:00] VITALS: BP 135/78
[2021-02-25 06:13] LABS: HEMATOCRIT 24.2 % (42.0-52.0); LYMPH # 0.3 10^3/uL (1.5-5.0); LYMPH % 4.1 % (24.0-44.0); MEAN CORPUSCULAR HEMOGLOBIN 30.2 pg (27.0-33.0); MEAN CORPUSCULAR HGB CONC 33.1 g/dl (32.0-36.5); MEAN CORPUSCULAR VOLUME 91.3 fl (80.0-96.0); MONO # 0.3 10^3/uL (0.0-0.8); MONO % 3.8 % (2.0-8.0); NEUTROPHILS # 6.3 10^3/uL (1.5-8.5); NEUTROPHILS % 91.5 % (36.0-66.0); PLATELET COUNT, AUTOMATED 173 10^3/uL (150-450); RED BLOOD COUNT 2.65 10^6/uL (4.30-6.10); WHITE BLOOD COUNT 6.9 10^3/uL (4.0-10.0)
[2021-02-25] MEDS: IRON POLYSAC (NIFEREX) 150 MG CAP PO SCH ×2 (06:26→20:58)
[2021-02-25] MEDS: PANTOPRAZOLE 40MG VIAL (C9113 PER 1) IV SCH ×2 (06:26→21:00)
[2021-02-25] MEDS: HEPARIN SOD (PORCINE) 5000UNITS/ML 1ML VIAL/SYRINGE SC SCH ×3 (06:26→21:00)
[2021-02-25] MEDS: MAGNESIUM GLUCONATE 500 MG TAB PO SCH (06:27)
[2021-02-25] MEDS: **hydrALAZINE** 50 MG TAB PO SCH ×3 (06:27→20:59)
[2021-02-25] MEDS: CARVedilol 3.125 MG TAB PO SCH ×2 (06:28→20:59)
[2021-02-25 06:32] LABS: ALBUMIN 2.8 GM/DL (3.2-5.2); BILIRUBIN,TOTAL 0.2 MG/DL (0.2-1.0); CALCIUM LEVEL 8.4 MG/DL (8.5-10.1); CREATININE FOR GFR 5.22 MG/DL (0.70-1.30); GLOMERULAR FILTRATION RATE 12.1 (>56); MAGNESIUM LEVEL 1.8 MG/DL (1.8-2.4); POTASSIUM SERUM 4.1 MEQ/L (3.5-5.1); TOTAL PROTEIN 5.9 GM/DL (6.4-8.2)
[2021-02-25] MEDS: predniSONE 20 MG TAB PO SCH (07:46)
[2021-02-25] MEDS: IRON SUCROSE 100MG 5ML VIAL (J1756 PER 1MG) IV SCH (09:09)
--- NOTE | 2021-02-25 09:40 | IRPON ---
IR Postoperative Note Date Of Procedure: Feb 21, 2021 Time Of Procedure: 16:00 IR Postoperative Note IR CT Guided kidney biopsy. Clinical Information:Renal failure. Known polycystic kidney disease. Sudden, severe, dramatic decrease in renal function, therefore referred by nephrology for kidney biopsy. Physician: Dr. Harris. Procedure: The patient was advised of the benefits, risks, and alternatives of the procedure and informed consent was obtained. A time out was performed with verification of the patient's name, MRN, site of procedure, and type of procedure to be performed. The patient was positioned in the prone position on the CT table. The site was prepped and draped in the usual sterile fashion. Moderate sedation was not required. The physician spent 45 minutes of continuous [id number] time with the patient. Preliminary CT demonstrates bilateral kidneys largely replaced by polycystic kidney disease. The skin and expected tract were anesthetized with lidocaine. There is very limited access to normal renal parenchyma for biopsy, due to replacement of bilateral kidneys by polycystic kidney disease. A small area of the right kidney was identified as suitable for percutaneous biopsy, not replaced by cyst. A 17-gauge coaxial needle was advanced under intermittent CT guidance to the targeted area of the right kidney. An 18-gauge Biopince device was advanced through the coaxial needle and used to obtain 3 cores of the right kidney, with CT confirmation. The needle was removed, pressure held and hemostasis achieved. A follow-up CT through the area demonstrates no significant hematoma. A sterile dressing was applied to the site. The patient tolerated the procedure well and was returned to the PRU in stable condition. EBL:Less than 5 mL. Complications:None. Conclusion:1. CT demonstrates bilateral kidneys largely replaced by polycystic kidney disease. 2. Successful CT-guided renal biopsy. Patient to follow-up with referring provider for biopsy results. Thank you for this referral. Cc ROBSON Lopez MD Feb 25, 2021 09:40
--- NOTE | 2021-02-25 11:44 | IPNPDOC ---
Text Note Date of Service The patient was seen on 02/25/21. NOTE Subjective: No any acute events overnight. Patient denies chest pain, palpita tions or diarrhea. Objective: GENERAL APPEARANCE: NAD HEENT: no scleral icterus, no JVD, EOMI CARDIOVASCULAR: S1S2 LUNGS: CTA ABDOMEN: soft & not tender w palpitation MUSCULOSKELETAL: no cyanosis, +1 lower extremity swelling bilaterally INTEGUMENT: no generalized pallor NEUROLOGICAL: cranial nerve function from 2-12 intact intact, follows commands, speech not dysarthric Assessment and plan Patient is 60 years old male with past medical history of polycystic kidney disease admitted with VENKAT Acute on chronic kidney disease/acute glomerulonephritis Acute worsening of the kidney function of unclear etiology. Nephrology team will start dialysis today Await autoimmune panel result. Nephrology team started pulsatile dose of Solu- Medrol [address] Wilson got a call from the Pathology Department at [facility] in [place] with the preliminary results and the patient has acute glomerulonephritis with immune complex deposition, predominately IgA Bilateral leg swelling Most likely secondary to VENKAT Improved Normocytic anemia B12, folate within normal limit Iron is low, continue iron supplementation Await stool for occult blood Continue Aranesp Normal anion gap metabolic acidosis Nephrology team follows him Managed by dialysis Hypertension Blood pressure under control continue [facility] Tobacco abuse smoking cessation education VS,Dave, I+O VS, Dave, I+O Laboratory Tests 02/25/21 05:34 Vital Signs Date Time Temp Pulse Resp B/P (MAP) Pulse Ox O2 Delivery O2 Flow Rate FiO2 02/25/21 08:12 12 02/25/21 07:47 68 127/73 02/25/21 06:00 97.4 98 Room Air 02/22/21 13:40 2.0 I&O- Last 24 Hours up to 6 AM 02/25/21 06:00 Intake Total 1570 ml Output Total 360 ml Balance 1210 ml CAROLYN TRIPP DO Feb 25, 2021 11:44
--- NOTE | 2021-02-25 12:20 | IPN ---
PROGRESS NOTE DATE: 02/25/2021 SUBJECTIVE: The patient was seen and examined at the bedside today morning during the hemolysis procedure. He is tolerating the hemodialysis procedure well. He denies an active complaints at this time. He reports that he was able to walk to the cafeteria yesterday. His leg edema is getting better. He continues to be on steroids. He has been switched to oral prednisone now. OBJECTIVE: VITAL SIGNS: Temperature is 97.4 degrees Fahrenheit, blood pressure is 127/73, pulse is 68 and respiratory rate is 12, saturating 98% on room air. INTAKE AND OUTPUT: Urine output recorded as 360 ml yesterday, 100 ml so far today since overnight, weight on the bed scale is 81.6 kg. GENERAL: Patient is awake, alert and oriented x3, laying in bed in no apparent distress. HEAD AND NECK: Extraocular muscles intact. Pupils equally round and reactive to light. Mucous membranes are moist. Neck is supple. He has a right IJ tunneled hemodialysis catheter. CARDIOVASCULAR: S1 and S2, regular rate. There is 1+ edema of the ankles. RESPIRATORY: Chest is clear to auscultation bilaterally. Bilaterally equal air entry. No rales or rhonchi. ABDOMEN: Soft, positive bowel sounds. Nontender. No organomegaly. MUSCULOSKELETAL: No clubbing or cyanosis. Pulses are 2+. ENCODING CLERK: No focal deficit. Power is 5/5 in all extremities. LABORATORY DATA: CBC showed a WBC of 6.9, hemoglobin 8, platelets are 173,000. BMP showed a sodium of 134, potassium 4.9, chloride 101, bicarbonate 22, BUN 61 creatinine is 5.2. CURRENT INPATIENT MEDICATIONS: The patient's medications were all reviewed by myself. There is no significant change in the medications today as compared with yesterday except that he has been started on prednisone 60 mg p.o. daily. ASSESSMENT AND PLAN: 1. Acute renal failure. Patient is dialysis dependent. He is being dialyzed today. 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 2. Anemia and renal failure. Continue Venofer and the Aranesp with dialysis. Will only transfuse if hemoglobin is below 8. 3. Hypertension. Blood pressure is getting better with Coreg and Hydralazine. Antihypertensive will be slowly weaned off once the volume status gets better. 4. Lower extremity edema. Patient is going to get at least one liter of fluid removed during dialysis. No need of diuretic at this time. 5. Disposition: Patient is awaiting placement for outpatient dialysis in [place], [place].
[2021-02-25 14:00] VITALS: BP 148/85
[2021-02-25 22:00] VITALS: BP 135/76
[2021-02-26] MEDS: traMADol 50 MG TAB PO PRN ×3 (01:09→21:52)
[2021-02-26] MEDS: HEPARIN SOD (PORCINE) 5000UNITS/ML 1ML VIAL/SYRINGE SC SCH ×3 (05:09→21:50)
[2021-02-26 05:46] VITALS: BP 141/78
[2021-02-26 06:18] LABS: BASO % 0.1 % (0.0-1.0); HEMATOCRIT 27.6 % (42.0-52.0); HEMOGLOBIN 9.2 g/dl (13.5-17.5); LYMPH # 0.5 10^3/uL (1.5-5.0); LYMPH % 6.6 % (24.0-44.0); MEAN CORPUSCULAR HEMOGLOBIN 30.4 pg (27.0-33.0); MEAN CORPUSCULAR HGB CONC 33.3 g/dl (32.0-36.5); MEAN CORPUSCULAR VOLUME 91.1 fl (80.0-96.0); MONO # 0.7 10^3/uL (0.0-0.8); MONO % 9.5 % (2.0-8.0); NEUTROPHILS # 6.1 10^3/uL (1.5-8.5); PLATELET COUNT, AUTOMATED 199 10^3/uL (150-450); RED BLOOD COUNT 3.03 10^6/uL (4.30-6.10); WHITE BLOOD COUNT 7.3 10^3/uL (4.0-10.0)
[2021-02-26 06:53] LABS: ALBUMIN 2.9 GM/DL (3.2-5.2); BILIRUBIN,TOTAL 0.3 MG/DL (0.2-1.0); CALCIUM LEVEL 8.3 MG/DL (8.5-10.1); CREATININE FOR GFR 3.97 MG/DL (0.70-1.30); GLOMERULAR FILTRATION RATE 16.6 (>56); MAGNESIUM LEVEL 1.8 MG/DL (1.8-2.4); TOTAL PROTEIN 5.8 GM/DL (6.4-8.2)
[2021-02-26] MEDS: IRON POLYSAC (NIFEREX) 150 MG CAP PO SCH ×2 (08:16→21:49)
[2021-02-26] MEDS: predniSONE 20 MG TAB PO SCH (08:16)
[2021-02-26] MEDS: MAGNESIUM GLUCONATE 500 MG TAB PO SCH (08:17)
[2021-02-26] MEDS: CARVedilol 3.125 MG TAB PO SCH ×2 (08:17→21:50)
[2021-02-26] MEDS: **hydrALAZINE** 50 MG TAB PO SCH ×3 (08:18→21:51)
[2021-02-26] MEDS: PANTOPRAZOLE 40MG VIAL (C9113 PER 1) IV SCH (08:18)
--- NOTE | 2021-02-26 09:09 | IPN ---
PROGRESS NOTE DATE: 02/26/2021 SUBJECTIVE: Patient was seen and examined at the bedside today morning. He is afebrile, hemodynamically stable. He was hemodialyzed yesterday. He tolerated the hemodialysis procedure well. OBJECTIVE: VITAL SIGNS: Temperature is 98 degrees Fahrenheit, blood pressure is 141/78, pulse is 75, respiratory rate is 20, saturating 98% on room air. INTAKE AND OUTPUT: Urine output is recorded as 950 ml, ultrafiltration with hemodialysis was 1 liter yesterday, weight on the bed scale is 81.3 kg. GENERAL: Patient is awake, alert and oriented x3, laying in bed, in no apparent distress. HEAD AND NECK: Extraocular muscles are intact. Pupils are equal, round and reactive to light. Mucous membranes are moist. Neck is supple. He has a right IJ tunneled hemodialysis catheter. CARDIOVASCULAR: S1 and S2, regular rate. No edema of the bilateral lower extremities. RESPIRATORY: Clear to auscultation bilaterally. Bilateral equal air entry. No rales or rhonchi. ABDOMEN: Soft, positive bowel sounds, nontender. No organomegaly. MUSCULOSKELETAL: No clubbing or cyanosis, pulses are 2+. NURSING AGENCY MANAGER: No focal deficit. Power is 5/5 in all extremities. LABORATORY DATA: CBC showed a WBC of 7.3, hemoglobin is 9.2, platelets of 199,000. BMP showed a sodium of 136, potassium is 4, chloride is 104, bicarbonate 25. BUN 44, creatinine is 3.9. CURRENT INPATIENT MEDICATIONS: Patient's medications were all reviewed by myself. There is no significant change in the medications today. He continues to be on prednisone 60 mg p.o. daily. I am going to change his Protonix to 40 mg p.o. daily. No other significant change in the medications. ASSESSMENT AND PLAN: 1. Acute renal failure. Patient is being treated for immune complex mediated acute glomerular nephritis, final pathology report is pending. Continue current dose of prednisone. Protonix is being changed to oral Protonix. Continue dialysis. He will need placement at outpatient dialysis for acute renal failure. 2. Anemia and renal failure. Patient is getting Venofer and Aranesp. Hemoglobin level is improving. 3. Hypertension, blood pressure is controlled with current antihypertensive regimen. Volume status is optimized. 4. Disposition. Patient is optimized to be discharged from a Nephrology standpoint as soon as he has a dialysis chair available as an outpatient. Patient finally decided to stay in the [place] area and get dialyzed over here and follow-up with our nephrology practice.
--- NOTE | 2021-02-26 13:04 | IPNPDOC ---
Text Note Date of Service The patient was seen on 02/26/21. NOTE Subjective: No any acute events overnight. Patient await dialysis set up in the outpatient settings Objective: GENERAL APPEARANCE: NAD HEENT: no scleral icterus, no JVD, EOMI CARDIOVASCULAR: S1S2 LUNGS: CTA ABDOMEN: soft & not tender w palpitation MUSCULOSKELETAL: no cyanosis, +1 lower extremity swelling bilaterally INTEGUMENT: no generalized pallor NEUROLOGICAL: cranial nerve function from 2-12 intact intact, follows commands, speech not dysarthric Assessment and plan Patient is 60 years old male with past medical history of polycystic kidney disease admitted with VENKAT Acute on chronic kidney disease/acute glomerulonephritis Acute worsening of the kidney function of unclear etiology. Nephrology team will start dialysis today Nephrology team recommended to continue p.o. prednisone Dr. Wilson got a call from the Pathology Department at [facility] in [place] with the preliminary results and the patient has acute glomerulonephritis with immune complex deposition, predominately IgA Bilateral leg swelling Most likely secondary to VENKAT Improved Normocytic anemia B12, folate within normal limit Iron is low, continue iron supplementation Continue Aranesp Normal anion gap metabolic acidosis Nephrology team follows him Managed by dialysis Hypertension Blood pressure under control continue [facility] Tobacco abuse smoking cessation education Patient will be transferred to [facility] status VS,Dave, I+O VSDave, I+O Laboratory Tests 02/26/21 05:56 Vital Signs Date Time Temp Pulse Resp B/P (MAP) Pulse Ox O2 Delivery O2 Flow Rate FiO2 02/26/21 08:52 12 02/26/21 08:17 77 143/81 02/26/21 05:46 98.0 98 Room Air 02/22/21 13:40 2.0 I&O- Last 24 Hours up to 6 AM 02/26/21 06:00 Intake Total 1000 ml Output Total 2450 ml Balance -1450 ml CAROLYN TRIPP DO Feb 26, 2021 13:04
[2021-02-26] MEDS: ACETAMINOPHEN TAB 650MG DOSE (2X325MG) PO PRN (15:21)
[2021-02-26 16:24] LABS: ANCA-ATYPICAL <1:20 titer (Neg:<1:20); ANTI DOUBLE STRAND-DNA AB 2 IU/mL (0-9); ANTI DS-DNA AB Negative (Negative); ANTI-GLOMERULAR BASEMENT MEMB 3 units (0-20); ANTINUCLEAR ANTIBODIES DIRECT Positive (Negative); CARDIOLIPIN IGA ANTIBODY <9 APL U/mL (0-11); CARDIOLIPIN IGG ANTIBODY <9 GPL U/mL (0-14); CARDIOLIPIN IGM ANTIBODY 26 MPL U/mL (0-12); CYTOPLASMIC NEUTROP AB ANCA-C <1:20 titer (Neg:<1:20); RNP ANTIBODIES <0.2 AI (0.0-0.9); SJOGREN'S ANTI SS-A <0.2 AI (0.0-0.9); SJOGREN'S ANTI SS-B <0.2 AI (0.0-0.9); SMITH ANTIBODIES <0.2 AI (0.0-0.9)
[2021-02-27] MEDS: HEPARIN SOD (PORCINE) 5000UNITS/ML 1ML VIAL/SYRINGE SC SCH (05:44)
[2021-02-27 06:00] VITALS: BP 150/88
[2021-02-27 06:35] LABS: HEMATOCRIT 26.8 % (42.0-52.0); HEMOGLOBIN 8.9 g/dl (13.5-17.5); LYMPH # 0.6 10^3/uL (1.5-5.0); LYMPH % 9.5 % (24.0-44.0); MEAN CORPUSCULAR HGB CONC 33.2 g/dl (32.0-36.5); MEAN CORPUSCULAR VOLUME 90.2 fl (80.0-96.0); MONO # 0.6 10^3/uL (0.0-0.8); MONO % 9.5 % (2.0-8.0); NEUTROPHILS # 4.7 10^3/uL (1.5-8.5); NEUTROPHILS % 79.5 % (36.0-66.0); PLATELET COUNT, AUTOMATED 167 10^3/uL (150-450); RED BLOOD COUNT 2.97 10^6/uL (4.30-6.10)
[2021-02-27 07:22] LABS: ALBUMIN 2.8 GM/DL (3.2-5.2); BILIRUBIN,TOTAL 0.3 MG/DL (0.2-1.0); CALCIUM LEVEL 7.9 MG/DL (8.5-10.1); CREATININE FOR GFR 4.26 MG/DL (0.70-1.30); GLOMERULAR FILTRATION RATE 15.3 (>56); MAGNESIUM LEVEL 1.7 MG/DL (1.8-2.4); POTASSIUM SERUM 3.9 MEQ/L (3.5-5.1); TOTAL PROTEIN 5.6 GM/DL (6.4-8.2)
[2021-02-27 08:13] VITALS: BP 137/84
[2021-02-27] MEDS: IRON POLYSAC (NIFEREX) 150 MG CAP PO SCH (08:15)
[2021-02-27] MEDS: MAGNESIUM GLUCONATE 500 MG TAB PO SCH (08:15)
[2021-02-27] MEDS: **hydrALAZINE** 50 MG TAB PO SCH (08:16)
[2021-02-27 08:17] VITALS: BP 137/84
[2021-02-27] MEDS: CARVedilol 3.125 MG TAB PO SCH (08:17)
[2021-02-27] MEDS: predniSONE 20 MG TAB PO SCH (08:17)
[2021-02-27] MEDS ORDERED: PANTOPRAZOLE 40MG TAB (PROTONIX) PO SCH (09:00)
[2021-02-27] MEDS: IRON SUCROSE 100MG 5ML VIAL (J1756 PER 1MG) IV SCH (10:32)
[2021-02-27] MEDS ORDERED: ACET500T15 PO (12:32)
[2021-02-27] MEDS ORDERED: NIFE15CA PO (12:32)
[2021-02-27] MEDS ORDERED: TRAM50TA2 PO (12:32)
[2021-02-27] MEDS ORDERED: PRED20TA PO (12:32)
[2021-02-27] MEDS ORDERED: PANT40TA29 PO (12:32)
--- NOTE | 2021-02-27 12:34 | IPN ---
PROGRESS NOTE DATE: 02/27/2021 SUBJECTIVE: Patient was seen and examined at the bedside today morning. He is afebrile, hemodynamically stable. He reports that he is making significant amount of urine now, however his creatinine is still rising in between dialysis. His creatinine today morning was 4.2. No other significant symptoms at this time. OBJECTIVE: VITAL SIGNS: Temperature is 97.7 degrees Fahrenheit, blood pressure is 137/84, pulse is 76, respiratory rate is 18, saturating 98% on room air. INTAKE AND OUTPUT: Urine output recorded as 2.1 liter yesterday, 1.4 liters so far today since overnight, weight on the bed scale is 81 kg. GENERAL: Patient is awake, alert and oriented x3, laying in bed in no apparent distress. HEAD AND NECK: Extraocular muscles are intact. Pupils are equally round and reactive to light. Mucous membranes are moist. Neck is supple. Right IJ tunneled hemodialysis catheter. CARDIOVASCULAR: S1 and S2, regular rate. No edema of the bilateral lower extremities. RESPIRATORY: Chest is clear to auscultation bilaterally, equal air entry. No rales or rhonchi. ABDOMEN: Soft, positive bowel sounds, nontender. No organomegaly. MUSCULOSKELETAL: No clubbing or cyanosis. Pulses are 2+. HEAD RESIDENT: No focal deficit. Power is 5/5 in all extremities. LABORATORY DATA: CBC showed a WBC of 6, hemoglobin 8.9, platelets are 167,000. BMP showed a sodium of 132, potassium 3.9, chloride is 99, bicarbonate 24, BUN 59, creatinine is 4.2. Glucose is 92. Calcium is 7.9. Magnesium is 1.7. Immunology showed WILFRID was positive. Anti-protein is 3. It was positive with a titer of 5.8. PANCA was positive with a titer of 1:640. Myeloperoxidase antibody was positive at 96.6. Anticardiolipin antibody IgM is positive. Atypical ANCA is negative, CANCA is negative. Sjgren's antibodies negative. Anti-Vazquez is negative. Ribonuclear protein antibody is negative. Anti-double stranded DNA antibody is negative and antiglomerular basement membrane antibody is negative. Hepatitis B and C serology is negative. CURRENT INPATIENT MEDICATIONS: Patient's medications were all reviewed by myself. He continues to be on prednisone 60 mg p.o. daily. No other significant change in the medications today as compared with yesterday. ASSESSMENT AND PLAN: 1. Acute non-oliguric renal failure. Patient's urine output is significantly improving. He was given pulse steroids. He is currently on oral prednisone. Today, he will be dialyzed for three hours only for clearance and no fluid removal will be done. ANCA antibodies are positive as mentioned above. 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 Final pathology result is pending. Patient would most likely need IV Rituxan once he follows up in the clinic. I am hopeful that his renal function should start improving and we should be able to stop his dialysis. 2. Anemia and renal failure. Patient is getting Aranesp and Venofer with dialysis. Hemoglobin is stable and improving. 3. Hypertension. Blood pressure is stable. Continue current antihypertensive regimen on discharge. Further change in regimen will be done when he follows up as an outpatient. 4. Disposition: Patient is optimal to be discharged from a Nephrology standpoint. He will need to follow-up in the office within one week after discharge from the hospital. %%CCLIST%%
--- NOTE | 2021-02-27 14:05 | DS.PDOC ---
Discharge Summary General Date of Admission Feb 20, 2021 at 21:18 Date of Discharge 02/27/21 Discharge Summary PROCEDURES PERFORMED DURING STAY: [None]. ADMITTING DIAGNOSES: Acute on chronic kidney disease/acute glomerulonephritis Bilateral leg swelling Normocytic anemia Normal anion gap metabolic acidosis Hypertension Tobacco abuse polycystic kidney disease DISCHARGE DIAGNOSES: Acute on chronic kidney disease/acute glomerulonephritis/ Bilateral leg swelling Normocytic anemia Normal anion gap metabolic acidosis Hypertension Tobacco abuse polycystic kidney disease COMPLICATIONS/CHIEF COMPLAINT: Dl, Edema Of Both Lower Extremities. HISTORY OF PRESENT ILLNESS: Mr. Weller is a 60-year-old gentleman from [place], who is in this area for a family reunion this weekend. He reports lower extremity edema going on for the last couple of weeks. He feels that it started after he had cold symptoms for 2 weeks in end of December, and since then it has gradually worsened. Yesterday his leg edema was so worse that he could not walk, due to which he came to the emergency room. He was found to have a serum creatinine of about 5.0. The emergency room PA did contact hospital in [place] where patient had gallbladder surgery in October, and according to those records his serum creatinine was 0.9. He does have known history of polycystic kidney disease. 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 ANCA antibodies are positive Nephrology team recommended to continue p.o. prednisone Dr. Wilson got a call from the Pathology Department at [facility] in [place] with the preliminary results and the patient has acute glomerulonephritis with immune complex deposition, predominately IgA. Await finalization of pathology report Patient received treatment with dialysis. Bilateral leg swelling Most likely secondary to DL Improved Normocytic anemia B12, folate within normal limit Iron is low, continue iron supplementation Continue Aranesp Stool positive for blood patient will need GI consult in the outpatient settings Normal anion gap metabolic acidosis Nephrology team follows him Managed by dialysis Hypertension Blood pressure under control continue [facility] Tobacco abuse smoking cessation education DISCHARGE MEDICATIONS: Please see below. ALLERGIES: Please see below. PHYSICAL EXAMINATION ON DISCHARGE: VITAL SIGNS: Please see below. GENERAL APPEARANCE: NAD HEENT: no scleral icterus, no JVD, EOMI CARDIOVASCULAR: S1S2 LUNGS: CTA ABDOMEN: soft & not tender w palpitation MUSCULOSKELETAL: no cyanosis, no swelling INTEGUMENT: no generalized pallor NEUROLOGICAL: cranial nerve function from 2-12 intact intact, follows commands, speech not dysarthric LABORATORY DATA: Please see below. PROGNOSIS: Fair ACTIVITY: [As tolerated]. DIET: Renal DISPOSITION: Home ITEMS TO FOLLOWUP ON ON OUTPATIENT: Follow-up with probation manager DISCHARGE CONDITION: [Stable]. TIME SPENT ON DISCHARGE: 40 minutes. Vital Signs/I&Os Vital Signs Date Time Temp Pulse Resp B/P (MAP) Pulse Ox O2 Delivery O2 Flow Rate FiO2 02/27/21 08:17 76 137/84 02/27/21 08:13 97.7 18 98 Room Air 02/22/21 13:40 2.0 I&O- Last 24 Hours up to 6 AM 02/27/21 06:00 Intake Total 660 ml Output Total 2350 ml Balance -1690 ml Laboratory Data Labs 24H Laboratory Tests 2 02/27/21 05:34: Immature Granulocyte % (Auto) 1.5, Neutrophils (%) (Auto) 79.5H, Lymphocytes (%) (Auto) 9.5L, Monocytes (%) (Auto) 9.5H, Eosinophils (%) (Auto) 0.0, Basophils (%) (Auto) 0.0, Neutrophils # (Auto) 4.7, Lymphocytes # (Auto) 0.6L, Monocytes # (Auto) 0.6, Eosinophils # (Auto) 0.0, Basophils # (Auto) 0.0, Nucleated Red Blood Cells % (auto) 0.0, Anion Gap 9, Glomerular Filtration Rate 15.3L, Calcium Level 7.9L, Magnesium Level 1.7L, Total Bilirubin 0.3, Aspartate Amino Transf (AST/SGOT) 10, Alanine Aminotransferase (ALT/SGPT) 15, Alkaline Phosphatase 55, Total Protein 5.6L, Albumin 2.8L, Albumin/Globulin Ratio 1.0 CBC/BMP Laboratory Tests 02/27/21 05:34 Microbiology Microbiology 02/27/21 Stool Occult Blood (QIANA) - Final, Complete 02/20/21 Blood Culture - Final, Complete NO GROWTH AFTER 5 DAYS Discharge Medications Scheduled Amlodipine Besylate (Norvasc) 10 Mg Tablet, 10 MG PO DAILY, (Reported) Carvedilol (Carvedilol) 3.125 Mg Tablet, 3.125 MG PO BID, (Reported) Iron Ag,Ps/C/Fa6/B12/Zn/SA/Sto (Niferex Tablet) 1 Each Tablet, 150 MG PO BID Pantoprazole Sodium (Pantoprazole Sodium) 40 Mg Tablet.dr, 40 MG PO DAILY Prednisone (Prednisone) 20 Mg Tablet, 60 MG PO QAM hydrALAZINE HCL (Hydralazine HCl) 100 Mg Tablet, 100 MG PO TID, (Reported) Scheduled PRN Acetaminophen (Acetaminophen) 500 Mg Tablet, 1,000 MG PO BID PRN for PAIN LEVEL 1-4 Tramadol HCl (Tramadol HCl) 50 Mg Tablet, 50 MG PO Q6HP PRN for MODERATE PAIN (PS 5-7) Allergies Coded Allergies: amoxicillin (Verified Allergy, Unknown, ANAPHYLAXIS, 02/20/21) CAROLYN TRIPP DO Feb 27, 2021 14:05
== END 2021-02-27 15:03 | disposition home or self-care (01) | DRG 469 ==
LOC: M ED 15:34 → M ED INP 21:18 → M MSPAV 23:50
PROVIDERS: ADMIT Internal Medicine; ATTEND Internal Medicine
PROC: 0TB03ZX Excision of Right Kidney, Percutaneous Approach, Diagnostic (ICD-10-PCS; 2021-02-21)
PROC: 02HV33Z Insertion of Infusion Device into Superior Vena Cava, Percutaneous Approach (ICD-10-PCS; 2021-02-22)
PROC: 0JH63XZ Insertion of Tunneled Vascular Access Device into Chest Subcutaneous Tissue and Fascia, Percutaneous Approach (ICD-10-PCS; principal; 2021-02-22 13:00)
PROC: 5A1D70Z Performance of Urinary Filtration, Intermittent, Less than 6 Hours Per Day (ICD-10-PCS; 2021-02-23)
DX: N17.9 Acute kidney failure, unspecified (principal); E87.2 Acidosis; Q61.3 Polycystic kidney, unspecified; D64.9 Anemia, unspecified; I77.89 Other specified disorders of arteries and arterioles; N18.9 Chronic kidney disease, unspecified; I12.9 Hypertensive chronic kidney disease with stage 1 through stage 4 chronic kidney disease, or unspecified chronic kidney disease; R21 Rash and other nonspecific skin eruption; F17.200 Nicotine dependence, unspecified, uncomplicated; Z79.899 Other long term (current) drug therapy; Z88.0 Allergy status to penicillin; M79.89 Other specified soft tissue disorders; Z90.49 Acquired absence of other specified parts of digestive tract

== ENCOUNTER → 2021-03-06 | Outpatient (REF) | payer OTHER ==
[~2021-03-06] MED LIST: ACET325C5 PO; ACET500T15 PO; AMLO10TA PO; CARV3.12 PO; HYDR100T PO; LOSA50TA88 PO; NIFE15CA PO; PANT40TA29 PO; PRED20TA PO; TRAM50TA2 PO
== END ==
LOC: M LAB REF 17:16
PROVIDERS: ATTEND Internal Medicine Nephrology
DX: I10 Essential (primary) hypertension (principal); N17.9 Acute kidney failure, unspecified